=== PATIENT | female | born 1965 | race Two or more races ===

== ENCOUNTER → 2024-04-23 | Outpatient (BNVA) | payer OTHER, SELFPAY | END | disposition home or self-care (01) | PROVIDERS: PCP Internal Medicine; Referring Provider Internal Medicine; Visit Provider Nurse Practitioner Family | DX: J01.90 Acute sinusitis, unspecified (principal); J06.9 Acute upper respiratory infection, unspecified | CPT/HCPCS: 99212 ==

== ENCOUNTER 2024-06-01 20:07 | Emergency (ER) | payer OTHER, SELFPAY ==
[2024-06-01 20:07] VITALS: BMI 27.4
[2024-06-01 20:28] VITALS: BP 163/93; PULSE 101; RESP 18; TEMP 36.7; O2SAT 98
--- NOTE | 2024-06-01 21:52 | EKG_ITS ---
[facility] Test Date: 2024-06-01 Pat Name: DALILA SHAH Department: Room: - Gender: Female Order Administrator: : 1965 Requested By: Issac Dan Order Number: [id number] Reading MD: Issac Dan Measurements Intervals [place] Rate: 74 P: 51 RI: 190 QRS: 24 QRSD: 69 T: 31 QT: 362 QTc: 403 Interpretive Statements SINUS RHYTHM POSSIBLE LEFT ATRIAL ENLARGEMENT [-0.1mV P-WAVE IN V1/V2] LOW QRS VOLTAGE IN PRECORDIAL LEADS [QRS DEFLECTION < 1.0 mV IN CHEST LEADS] No previous ECG available for comparison /[id number]/[email or web address]/[id number]
--- NOTE | 2024-06-01 21:52 | PD.EDANX ---
ED Anxiety RME/HPI General Chief Complaint: Anxiety Stated Complaint: SOB AND ANXIETY Time Seen by Provider: 06/01/24 20:08 Arrival date/time: 06/01/24 20:07 58-year-old female with a history of anxiety disorder on lorazepam as needed presents today with complaints of a panic attack. Patient states she suddenly got flushed really hot short of breath chest pain nervous anxious and crying. Patient states that she has been under a lot of stress lately and she attributes this to the panic attack. Patient states once the panic attack began she took some of the lorazepam which seems to be offering relief of her symptoms. She denies chest pain nausea or vomiting since entering the ER and taking the medication. Limitations: no limitations Related Data Home Medications ?Medication ?Instructions ?Recorded ?Confirmed atorvastatin 40 mg tablet 40 mg PO QDAY 04/23/24 04/23/24 Previous Rx's ?Medication ?Instructions ?Recorded lorazepam 1 mg tablet 1 mg PO 8HR Anxiety #20 tabs 07/17/14 amoxicillin 875 mg-potassium 1 tab PO BID #14 tabs 04/23/24 clavulanate 125 mg tablet guaifenesin 1,200 mg tablet, 1,200 mg PO BID PRN cough #14 tabs 04/23/24 extended release 12 hr (Mucinex) Allergies Allergy/AdvReac Type Severity Reaction Status Date / Time NKA* Allergy Uncoded 04/23/24 14:00 Review of Systems Constitutional Constitutional: Denies fatigue and Denies lethargy ENT Ears, Nose, Mouth, and Throat: Denies vertigo Cardiovascular Cardiovascular: Reports chest pain, Denies dyspnea and Denies syncope Respiratory Respiratory: Denies cough and Denies dyspnea Gastrointestinal Gastrointestinal: Denies nausea and Denies vomiting Musculoskeletal Musculoskeletal: Denies back pain and Denies deformity Neurologic Neurologic: Denies seizure-like activity, Denies syncope and Denies vertigo Psychiatric Psychiatric: Reports anxiety, Denies depression, Denies homicidal ideation and Denies suicidal ideation Endocrine Endocrine: Denies fatigue Hematologic/Lymphatic Hematologic/Lymphatic: Denies easy bleeding and Denies easy bruising Past Medical History Social History SMOKING STATUS: Never smoker ED Exam General Limitations: Present no limitations General appearance: Present alert and in no apparent distress Head Head exam: Present atraumatic Eye Eye exam: Present normal appearance, PERRL and EOMI ENT ENT exam: Present normal exam, normal oropharynx and mucous membranes moist Neck Neck exam: Present normal inspection, full ROM and trachea midline Chest Chest inspection: Present normal inspection and symmetric chest wall rise Respiratory Respiratory exam: Present normal lung sounds bilaterally Cardiovascular Cardiovascular exam: Present regular rate, normal rhythm and normal heart sounds Abdominal Exam Abdominal exam: Present soft and normal bowel sounds Extremities Exam Extremities exam: Present normal inspection and full ROM Back Exam Back exam: Present normal inspection and full ROM Neurological Exam Neurological exam: Present alert, oriented X3 and CN II-XII intact Psychiatric Psychiatric exam: Present normal affect and normal mood Skin Skin exam: Present warm, dry, intact and normal color Course Course Course Narrative: 58-year-old female with a history of anxiety disorder reports with complaints of a panic attack. Patient reports feeling much better after taking lorazepam previously prescribed by her primary care provider. Patient has the medication with her and took her medications prior to entering the emergency department. She is currently stable nontoxic-appearing with stable vital signs EKG with normal sinus rhythm no STEMI or evidence of ischemia. Patient is advised to follow-up with her primary care provider. Quality Measures none Orders Category Date Time Status EKG (ED ONLY) *Do not use* NOW Care 06/01/24 21:52 Ordered EKG (ED Only) Stat Exams 06/01/24 21:52 Ordered Vital Signs Vital signs: Vital Signs Temperature 98.1 F 06/01/24 20:28 Pulse Rate 101 H 06/01/24 20:28 Respiratory Rate 18 06/01/24 20:28 Blood Pressure 163/93 H 06/01/24 20:28 Pulse Oximetry (%) 98 06/01/24 20:28 Oxygen Delivery Method Room Air 06/01/24 20:28 Procedures -ED EKG Interpretation #1: EKG Impression: Normal sinus rhythm, No acute ST-T changes and No ischemic changes Anxiety Patient data External records reviewed:: None Clinical information provided by:: patient Social determinants that could affect healthcare access:: none Patient has the following chronic illnesses:: anxiety How is presenting disease/condition affected by chronic disease/condition?: caused by Evaluation data The following diagnostics were reviewed and interpreted by me:: other (specify) (none) Lab and/or radiology exams considered but not ordered:: none Interpretation Summary: n/a Medications / Prescriptions Medications or Prescriptions considered but not ordered:: none Medication administrations:: none Consultations Consultation(s) initiated? (list below): No Diagnosis Most likely diagnosis given after review of the tests above:: anxiety Admission Indicated Admission indicated?: not indicated Admission Request Was there a request for admission?: No Disposition Plan Disposition Plan: Discharge Discharge Attestation Discharge Attestation: The patient and all family members were given an opportunity to ask questions and understood the discharge instructions. Discharge instructions specifically effects, indications for sooner follow up or return to the emergency department, and the expected course of current diagnosis. Patient condition: Stable Discharge Plan Plan Patient Disposition: HOME (Self Care) Prescriptions/Referrals Prescriptions/Med Rec: No Action atorvastatin 40 mg tablet 40 mg PO QDAY amoxicillin-pot clavulanate 875-125 mg tablet 1 tab PO BID Qty: 14 0RF guaifenesin [Mucinex] 1,200 mg tablet extended release 12hr 1,200 mg PO BID PRN (Reason: cough) Qty: 14 0RF lorazepam 1 MG tablet 1 mg PO 8HR Qty: 20 0RF Referrals: Brian Molina [Primary Care Provider] - In 1 week Problem List Clinical Impression: Acute anxiety Patient/Caregiver Discharge Instructions Education Materials: ED Anxiety Reaction Additional Instructions: Follow-up with your primary care provider Print Language: Yakut Stand Alone Forms: Ada Award Info., Patient Portal Info Letter
[2024-06-01 22:04] VITALS: BP 144/89; PULSE 91; RESP 18; TEMP 36.7; O2SAT 97
== END 2024-06-01 22:19 | disposition home or self-care (01) ==
PROVIDERS: Emergency Provider Emergency Medicine; PCP Internal Medicine
DX: F41.9 Anxiety disorder, unspecified (principal)
CPT/HCPCS: 93005; 99283